=== PATIENT | female | born 1950 | race Caucasian/White ===

== ENCOUNTER 2018-05-17 12:47 | Inpatient (IN) ==
[2018-05-17] MEDS ORDERED: TORADOL IV ONE (13:02)
[2018-05-17] MEDS ORDERED: NS 2,000 ML ONE (13:22)
[2018-05-17] MEDS ORDERED: NS 1,000 ML IV ONE (13:28)
--- NOTE | 2018-05-17 13:41 | PROVIDER DOCUMENTATION ---
This chart was entered by Shahla Mensah Scribe, acting as scribe for Nahun Buchanan MD. HPI-General Adult - General Chief Complaint: Abdominal Pain Stated Complaint: FEMALE Time Seen by Provider: 05/17/18 13:01 Source: patient Allergies/Adverse Reactions: Patient Allergies Allergy/AdvReac Type Severity Reaction Status Date / Time duloxetine HCl * Allergy Unknown Unknown Verified 11/09/12 16:33 [From Cymbalta] prednisone Allergy Unknown Unknown Verified 11/09/12 16:33 pregabalin [From Lyrica] Allergy Unknown Unknown Verified 11/09/12 16:33 sulfamethoxazole Allergy Unknown Unknown Verified 11/09/12 16:33 [From Bactrim] trimethoprim [From Bactrim] Allergy Unknown Unknown Verified 11/09/12 16:33 Home Medications: Home Medication List Medication Instructions Recorded Confirmed Last Taken Type Citalopram [Celexa] 40 mg PO DAILY 11/09/12 11/09/12 Unknown History Clonazepam [Klonopin] 0.5 mg PO HS 11/09/12 11/09/12 Unknown History Esomeprazole [Nexium] 40 mg PO DAILY 11/09/12 11/09/12 Unknown History Estradiol [Estrace] 1 mg PO DAILY 11/09/12 11/09/12 Unknown History Levothyroxine [Synthroid] 50 microgm PO DAILY 11/09/12 11/09/12 Unknown History Lorazepam [Ativan] 1 mg PO BID 11/09/12 11/09/12 11/09/12 09:00 History Propylene Glycol/Peg Oph Soln 1 drop BOTH EYES PRN PRN 11/09/12 11/09/12 Unknown History [Systane Eye Drops] Triamterene/Hctz [Dyazide] 1 each PO DAILY 11/09/12 11/09/12 Unknown History Zolpidem [Ambien] 10 mg PO QHS 11/09/12 11/09/12 Unknown History - History of Present Illness -Gen Adult Nature of Presenting Problems: 67 y/o female presents to ED with worsening suprapubic pain, low back pain, R side pain, N/V/D, decreased urine output, and constipation onset 2 days ago. Pt is dramatically tearful and it is very difficult to obtain information. Location of Pain/Injury: reports: abdomen (suprapubic), back (low), other (R side) Pain Radiation: reports: no radiation Quality of Pain: reports: sharp Severity: reports: moderate Onset/Duration: reports: 2 days ago Timing: reports: still present, getting worse Context/Activities at Onset: reports: none Modifying Factors: worse with: palpation Associated Symptoms: reports: constipation, diarrhea, nausea, vomiting, other ( suprapubic pain, R side pain, decreased urine output) Similar Symptoms Previously?: No Recently seen or treated by another doctor?: No Review of Systems - Adult - REVIEW OF SYSTEMS - ADULT Constitutional: denies: chills, fever Eyes: reports: no symptoms reported Ears, Nose, Mouth & Throat: reports: no symptoms reported Cardiovascular: denies: chest pain, palpitations Respiratory: denies: cough, shortness of breath Gastrointestinal: reports: abdominal pain (suprapubic), constipation, diarrhea, nausea, vomiting Genitourinary: reports: other (decreased urine output). denies: incontinence Musculoskeletal: reports: back pain (low), other (R side pain). denies: joint pain Integumentary: reports: no symptoms reported Neurological: reports: no symptoms reported Psychiatric: reports: no symptoms reported Endocrine: reports: no symptoms reported Hematologic/Lymphatic: reports: no symptoms reported Allergic/Immunologic: reports: no symptoms reported All Other Systems: Reviewed and Negative Past History - Adult - PAST MEDICAL HISTORY-ADULT Review of Records: reports: Old Records Reviewed, Nursing Assessment Review, Medications Reviewed Major Childhood Illnesses: reports: denies history Gastrointestinal: reports: GERD Musculoskeletal: reports: chronic pain Endocrine/Immune: reports: thyroid disorder (hypo) - PRIOR SURGERIES/PROCEDURES Surgical/Procedure History: reports: cholecystectomy, hysterectomy, orthopedic ( extremity) (bilateral shoulders), back/neck (back), other (TMJ; facial reconstruction) - IMMUNIZATION STATUS Childhood Immunizations: See Nurse Assessment Flu Vaccine: See Nurse Assessment - FAMILY HISTORY Family History: reviewed, not pertinent - SOCIAL HISTORY Smoking: quit greater than 1 year Substance Use: none/never Alcohol Use Frequency: never Living Situation: family Physical Exam-General - PHYSICAL EXAM-ADULT Initial Vital Signs Reviewed: Yes - CONSTITUTIONAL General Appearance: appears well, moderate distress, other (dramatically tearful ) - EYES Eyes: PERRL/EOMI, pink conjunctivae - HEAD, EARS, NOSE, MOUTH & THROAT HENMT: normocephalic/atraumatic, moist mucous membranes, normal ENT inspection - NECK Neck: non-tender, full range of motion - RESPIRATORY Respiratory: chest non-tender, lungs clear, normal breath sounds - CARDIOVASCULAR Cardiovascular: normal peripheral pulses, regular rate, rhythm - GASTROINTESTINAL (ABDOMEN) Abdominal Exam: normal bowel sounds, soft, tenderness (suprapubic) - MUSCULOSKELETAL Back Exam: normal inspection, no CVA tenderness Extremity: normal range of motion, normal gait, tenderness (dramatically tender bilateral lower extremities) - SKIN Integumentary: normal color, warm/dry - NEUROLOGIC Neurologic: grossly normal - PSYCHIATRIC Psych/Mental Status: normal mood/affect, normal thought content, normal thought process, oriented x 3, tearful (dramatically) Progress - PLAN OF CARE/RESULTS Progress/Plan/Lab Results: Vital Signs - 8 hr 05/17/18 12:54 Temperature 99.5 F Pulse Rate 107 H Respiratory Rate 19 Blood Pressure 96/63 O2 Sat by Pulse Oximetry 95 Orders Category Date Time Status Saline Loc DIRECTED Care 05/17/18 12:59 Active NPO Diet 05/17/18 12:59 Active AMYLASE [CHEM] Stat Lab 05/17/18 12:59 Uncollected CBC WITH ELECTRONIC DIFF [HEME] Stat Lab 05/17/18 12:59 Uncollected COMPREHENSIVE METABOLIC PANEL [CHEM] Stat Lab 05/17/18 12:59 Uncollected LIPASE [CHEM] Stat Lab 05/17/18 12:59 Uncollected URINALYSIS W/POSS RFLX CULT [URINALYSIS] Stat Lab 05/17/18 12:59 Uncollected Ketorolac [Toradol] Med 05/17/18 13:02 Discontinued 30 mg IV NOW ONE Result Diagrams: 05/17/18 13:18 05/17/18 13:18 - CONSULTS/PCP/HOSPITALIST Notification #1 *Consult/PCP/Hospitalist*: anne Time Discussed: 14:15 Consult Disposition: Admit Departure - Departure Date of Disposition Decision: 05/17/18 Time of Disposition Decision: 14:31 DIAGNOSIS: Urinary tract infection Qualifiers: Urinary tract infection type: site unspecified Hematuria presence: with hematuria Qualified Code(s): N39.0 - Urinary tract infection, site not specified Abdominal pain Qualifiers: Abdominal location: lower abdomen, unspecified Qualified Code(s): R10.30 - Lower abdominal pain, unspecified Disposition: ADMITTED INPATIENT 09 Certified Medical Emergency: Emergent Condition: Stable Referrals and Follow-Ups: Elvin Armas MD [Primary Care Provider] - - Critical Care Note This patient required my direct & personal management of CC.: No Attestation - Physician/ SEGUN Attestation Patient care was provided by Advanced Practice Provider:: No The physician spent face to face time with patient:: Yes (c) Advanced Practice Provider documentation review:: Supervising physician onsite and consulted in the evaluation and care of this patient. The physician did have a face to face encounter with the patient. This chart was documented by the indicated scribe, (Shahla Mensah Scribe) and accurately reflects the services I performed and decisions made by me, Nahun Buchanan MD, as attested by the provider's signature.
[2018-05-17 13:48] LABS: BASO# 0.01 X1000 (0.0-0.2); BASO% 0.1 % (0.0-0.8); HEMATOCRIT 37.3 % (37.0-47.0); HEMOGLOBIN 12.6 g/dL (12.0-16.0); IMM GRAN# 0.07 X1000 (0.0-0.04); IMM GRAN% 0.5 % (0.0-0.5); LYMPH# 0.89 X1000 (1.2-3.4); LYMPH% 6.3 % (20.5-51.1); MCH 29.4 PG (27-31); MCHC 33.8 g/dL (33-37); MCV 87.1 FL (81-99); MONO# 1.75 X1000 (0.11-0.59); MONO% 12.4 % (1.7-9.3); MPV 9.4 FL (7.4-10.4); NEUT# 11.44 X1000 (1.4-6.5); NEUT% 80.7 % (42.2-75.2); PLT 407 X1000 (130-400); RBC 4.28 XMIL (4.2-5.4); RDW 12.5 % (11.5-14.5); WBC 14.16 X1000 (4.8-10.8)
[2018-05-17 13:58] LABS: URINE SOURCE CLEAN CATCH
[2018-05-17 14:13] LABS: BILIRUBIN URINE MODERATE (NEGATIVE); BLOOD URINE MODERATE (NEGATIVE); COLOR ORANGE; GLUCOSE URINE NEGATIVE (NEGATIVE); KETONE URINE NEGATIVE (NEGATIVE); LEUKOCYTES URINE LARGE (NEGATIVE); NITRITE URINE POSITIVE (NEGATIVE); PH URINE 6.5; PROTEIN URINE 300 mg/dL (NEGATIVE); SP GRAVITY URINE 1.016; TURBIDITY URINE TURBID (CLEAR); UROBILINOGEN URINE 3 mg/dL (NORMAL)
[2018-05-17 14:15] LABS: ALB/GLOB RATIO 1.5; ALBUMIN 4.5 g/dL (3.5-5.0); CALCIUM 9.1 mg/dL (8.8-10.2); CREATININE 1.1 mg/dL (0.5-0.9); POTASSIUM 3.7 mmol/L (3.5-5.1); TOTAL BILIRUBIN 1.65 mg/dL (0.20-1.00); TOTAL PROTEIN 7.6 g/dL (6.3-8.3)
[2018-05-17] MEDS ORDERED: ATIVAN IV ONE (14:19)
[2018-05-17 14:26] LABS: UR EPITHELIAL CELLS <10 /HPF (<10); URINE BACTERIA 4+ /HPF; URINE CASTS NONE SEEN; URINE CRYSTALS NONE SEEN; URINE RBC 20-40 /HPF (<10); URINE WBC TNTC /HPF (<10); URINE YEAST NONE SEEN
[2018-05-17] MEDS: NS 1,000 ML IV SCH ×2 (14:49→23:39)
[2018-05-17] MEDS: ROCEPHIN 1 GM in NS 50 ML IV SCH (14:49)
[2018-05-17] MEDS: ZOFRAN IV PRN (15:44)
[2018-05-17] MEDS: MORPHINE IV PRN ×2 (15:45→22:29)
--- NOTE | 2018-05-17 17:11 | HISTORY AND PHYSICAL ---
CHIEF COMPLAINT: Urinary tract infection. HISTORY OF PRESENT ILLNESS: This 67-year-old white female has apparently been sick since . She neglected to call her primary office in a timely fashion and got azo over the counter for symptoms of dysuria and cramping in the abdomen. Over the course of the weekend she has been vomiting frequently, having abdominal pain, continued dysuria with cramping, fever as high as 102. The patient's called me late Friday morning and after hearing the history, I immediately recommended emergency room visit for evaluation. He stated that she refused to go to the emergency room and I stood by my recommendation. I then tried to appease them by offering to call in some medication and he questioned that. I stood firm on my recommendation to the emergency room and some 2-1/2 hours later they showed up at the emergency room and were evaluated by the physician there. After seeing the patient's vital signs on line, I decided to come in and go ahead and see the patient, even though her database was not complete. It is clear she has a urinary tract infection by her urinalysis and elevated white cell count, as well as fever and relative hypotension. PAST MEDICAL HISTORY: 1. Chronic pain. 2. Generalized anxiety disorder. 3. Hypothyroidism. 4. Diffuse degenerative arthritis, including knees and shoulders. 5. Other chronic pain. PAST SURGICAL HISTORY: 1. Cholecystectomy. 2. Spinal epidural x 3. 3. Multiple lower back surgeries. FAMILY HISTORY: Noncontributory. SOCIAL HISTORY: The patient is and lives with her . She is a former nurse. REVIEW OF SYSTEMS: The patient has crampy abdominal pain, severe cramping, dysuria, as well as burning when she urinates. She states that now the pain is up into her sides and flank. She vomits nearly every time she goes to the bathroom, although her stomach is empty. She has not been eating or drinking. She has had fever at home. She denies any cough, wheezing or shortness of breath that is new. She has a chronic cough dating back to a previous hospitalization in 2010 when she had aspiration pneumonitis. Patient's states that she has chronic mild hypotension, with the systolic blood pressure averaging around 105. The patient denies any chest pain or palpitations. From a musculoskeletal standpoint, she says she hurts everywhere. There is no place that I mentioned or could touch her where she did not hurt. She states she has chronic right lower quadrant abdominal pain which has been worked up with CT scans and ultrasounds by Dr. Armas with no findings. The patient has insomnia and anxiety, as well as chronic pain. PHYSICAL EXAMINATION: GENERAL: She is a well-developed white female who is shaking and crying. She states that she thinks she is going to . ENT: The sclerae are anicteric. Oral mucosa is dry, but not parched. It is of normal coloration. NECK: Unremarkable. LUNGS: Clear to auscultation in all hawkins anteriorly and posteriorly. CARDIOVASCULAR: Regular at 86. This corresponds with the findings on the monitor. Blood pressure at the time my examination was 103/69. ABDOMEN: Bowel sounds are scarce, but present. She is diffusely tender every place where I touch her. EXTREMITIES: There is no peripheral edema. She is tender everywhere I touch her. NEUROLOGIC: Cranial nerves are intact. There are no focal findings. She is able to move her arms and legs at command, although she states that her knee hurts. PSYCHOLOGIC: The patient is very overwrought, nervous and frightened. LABORATORIES: It is noted that the database is not quite complete yet. Urinalysis shows 20 to 40 red blood cells per high-power field, large leukocyte esterase and nitrite positivity, 4+ bacteria and too numerous to count white cells per high-powered field. Serum electrolytes show slightly low sodium and chloride of 132 and 88 respectively. White cell count is elevated at 14,000, hematocrit 37.3. ASSESSMENT AND PLAN: 1. The patient clearly has a UTI. I am going to check a lactate level to make sure that we are not dealing with a sepsis syndrome, but I do not think so looking at all the parameters. She has been lincoln cultured or will be lincoln cultured before leaving the ER. Am going to give her Rocephin initially and monitor the microbiology for any adjustments that need to be made in antibiotic. I have also ordered a flu swab due to her high temperatures at home. 2. The patient's chronic pain and anxiety are going to be an issue. She does not appear to be very stoic. I will plan to give her Ativan as needed and when her stomach problems clear up a bit she can be put back on her usual p.o. regimen. 3. Her blood pressure is relatively low and hydration status is low and I have started normal saline 125 mL/h. cc: MD Elvin Herndon MD [facility] NOBLE HOSPITALMyesha
[2018-05-17] MEDS: AMBIEN PO SCH (23:30)
[2018-05-17] MEDS: TYLENOL PO PRN (23:35)
[2018-05-18] MEDS: KLONOPIN PO SCH ×2 (00:05→22:49)
[2018-05-18] MEDS: ZOFRAN IV PRN ×2 (06:06→13:19)
[2018-05-18] MEDS: NS 1,000 ML IV SCH ×3 (06:06→20:27)
[2018-05-18] MEDS ORDERED: SYSTANE EYE DROPS BOTH EYES PRN (07:12)
[2018-05-18 08:43] LABS: BASO# 0.01 X1000 (0.0-0.2); BASO% 0.1 % (0.0-0.8); HEMATOCRIT 28.7 % (37.0-47.0); HEMOGLOBIN 9.5 g/dL (12.0-16.0); IMM GRAN# 0.04 X1000 (0.0-0.04); IMM GRAN% 0.3 % (0.0-0.5); LYMPH# 1.06 X1000 (1.2-3.4); LYMPH% 8.4 % (20.5-51.1); MCHC 33.1 g/dL (33-37); MCV 90.5 FL (81-99); MONO# 1.32 X1000 (0.11-0.59); MONO% 10.4 % (1.7-9.3); MPV 9.5 FL (7.4-10.4); NEUT# 10.25 X1000 (1.4-6.5); NEUT% 80.8 % (42.2-75.2); PLT 263 X1000 (130-400); RBC 3.17 XMIL (4.2-5.4); RDW 12.8 % (11.5-14.5); WBC 12.68 X1000 (4.8-10.8)
[2018-05-18 08:58] LABS: CALCIUM 8.2 mg/dL (8.8-10.2); CREATININE 1.4 mg/dL (0.5-0.9)
--- NOTE | 2018-05-18 09:44 | PROGRESS NOTE ---
DATE: 05/18/2018 SUBJECTIVE: Ms. Vasquez presented, had been sick for 3 or 4 days. She complained of pressure over her bladder. Over the weekend, she had vomiting frequently and having abdominal pain, dysuria, and cramping. Temp 102 degrees, who came in on Friday morning. She was admitted with a UTI. Her influenza screen was negative for A and B. Her urine, quite a bit of sediment, and too numerous to count white blood cells, 20 to 40 red blood cells, and 4+ bacteria, so treating her for pyelonephritis. She still feels pretty bad. OBJECTIVE: Vital signs: Temp 98 degrees, pulse 69, respirations 15, blood pressure 91/41. Pupils: Are equal and round. Lungs: Clear in all lung hawkins. Cardiovascular: Regular rate without murmur or S3. Abdomen: Soft. Skin: Warm and dry. : Scant urine output. ASSESSMENT AND PLAN: 1. Pyelonephritis. Gave her quite a bit of fluids. Continue Rocephin. 2. Chronic pain, anxiety, and depression. Still long history for her, so continue her current medications. She is on Klonopin 0.5 mg a day, Celexa 40 mg a day, Ativan 1 mg b.i.d. She is getting normal saline at 125 mL an hour, and will continue the ceftriaxone 1 gram q.24 hours. cc: Elvin Armas MD
[2018-05-18] MEDS: ESTRACE PO SCH (10:09)
[2018-05-18] MEDS: ATIVAN PO SCH ×2 (10:09→22:49)
[2018-05-18] MEDS: NEXIUM PO SCH (10:09)
[2018-05-18] MEDS: SYNTHROID PO SCH (10:09)
[2018-05-18] MEDS: CELEXA PO SCH (10:10)
[2018-05-18] MEDS: TYLENOL PO PRN ×2 (10:25→20:27)
[2018-05-18] MEDS: MORPHINE IV PRN (13:17)
[2018-05-18] MEDS: ROCEPHIN 1 GM in NS 50 ML IV SCH (14:52)
[2018-05-18] MEDS: DYAZIDE PO SCH (16:25)
[2018-05-18] MEDS: AMBIEN PO SCH (22:49)
[2018-05-19] MEDS: NS 1,000 ML IV SCH ×3 (07:07→20:29)
[2018-05-19 07:44] LABS: CALCIUM 7.7 mg/dL (8.8-10.2); CREATININE 1.2 mg/dL (0.5-0.9); MAGNESIUM 1.7 mg/dL (1.5-2.7); POTASSIUM 3.3 mmol/L (3.5-5.1)
[2018-05-19] MEDS: HALL'S COUGH LOZENGE MT PRN ×2 (08:47→20:30)
[2018-05-19] MEDS: CELEXA PO SCH (08:50)
[2018-05-19] MEDS: ESTRACE PO SCH (08:51)
[2018-05-19] MEDS: ATIVAN PO SCH ×2 (08:51→22:45)
[2018-05-19] MEDS: DYAZIDE PO SCH (08:51)
[2018-05-19] MEDS: SYNTHROID PO SCH (08:51)
[2018-05-19] MEDS: NEXIUM PO SCH (08:51)
--- NOTE | 2018-05-19 08:52 | Diag Imaging Result Doc PS360 ---
EXAM: US RENAL 2 (RETROPER) COMPLETE HISTORY: pyelonephritis TECHNIQUE: Renal ultrasound COMPARISON: None. FINDINGS: The right kidney measures 11.3 x 5.3 x 5.2 cm. Normal renal echotexture and cortical thickness. No renal stone or hydronephrosis. No renal mass. The left kidney is partly obscured, but measures 10.7 x 5.9 x 5.2 cm. Normal renal echotexture and cortical thickness. There is a 2.9 cm cyst. No other renal abnormality identified. The urinary bladder is distended and is normal. IMPRESSION: Left renal cyst. Electronically signed by Rashaad Beltran 05/19/2018 8:50 AM
[2018-05-19] MEDS: TYLENOL PO PRN ×2 (09:02→20:34)
[2018-05-19] MEDS: MORPHINE IV PRN ×2 (09:03→20:28)
--- NOTE | 2018-05-19 10:08 | PROGRESS NOTE ---
DATE: 05/19/2018 SUBJECTIVE: Ms. Vasquez had started having some urine output yesterday. I think she is feeling a little bit better. She has a little bit of dry cough. OBJECTIVE: Vital Signs: Temperature 99.8 degrees, pulse 90, respirations 20, blood pressure 122/42. HEENT: Pupils are equal and round. No distended neck veins. Lungs: Clear in all lung hawkins. Cardiovascular Examination: Regular rhythm and rate without murmur or S3. Abdomen: Soft. Skin: Warm and dry. Is and Os: Urine output is 6 L. Laboratory Data: Renal ultrasound, there is a left renal cyst. Otherwise no obstruction. Kidneys, normal dimensions. ASSESSMENT AND PLAN: 1. Pyelonephritis, volume depletion, and dehydration. She seems to be doing better. Urine output is improving. 2. Chronic pain, anxiety, and depression. Continue her current medications. 3. Postnasal drainage and bronchial irritation. I will put her on a steroid inhaler and let her have some cough medicine too, some Tessalon Perles as needed. Continue present fluid management. cc: Elvin Armas MD
[2018-05-19] MEDS: ROCEPHIN 1 GM in NS 50 ML IV SCH (14:40)
[2018-05-19] MEDS: KLONOPIN PO SCH (20:28)
[2018-05-19] MEDS: ZOFRAN IV PRN (20:34)
[2018-05-19] MEDS: TESSALON PO PRN (20:44)
[2018-05-19] MEDS: AMBIEN PO SCH (22:44)
[2018-05-19] MEDS: ADVAIR 250/50 DISKUS INH SCH (23:52)
[2018-05-20] MEDS: NS 1,000 ML IV SCH ×5 (03:01→17:39)
[2018-05-20] MEDS: TYLENOL PO PRN (03:01)
[2018-05-20 07:03] LABS: POTASSIUM 2.9 mmol/L (3.5-5.1)
[2018-05-20 07:04] LABS: AGAP 9; BUN 7 mg/dL (8-22); CALCIUM 7.8 mg/dL (8.8-10.2); CHLORIDE 105 mmol/L (98-107); COSMO 267; CREATININE 0.8 mg/dL (0.5-0.9); ESTIMATED GFR > 60; GLUCOSE 88 mg/dL (70-104); SODIUM 135 mmol/L (136-145); TCO2 21 mmol/L (25-35)
[2018-05-20] MEDS: ESTRACE PO SCH (08:43)
[2018-05-20] MEDS: CELEXA PO SCH (08:44)
[2018-05-20] MEDS: DYAZIDE PO SCH (08:44)
[2018-05-20] MEDS: NEXIUM PO SCH (08:44)
[2018-05-20] MEDS: SYNTHROID PO SCH (08:44)
[2018-05-20] MEDS: ATIVAN PO SCH ×2 (08:44→22:35)
--- NOTE | 2018-05-20 14:05 | PROGRESS NOTE ---
DATE: 05/20/2018 SUBJECTIVE: Ms. Vasquez his a pretty raspy cough. Otherwise she is eating. Urine output has improved dramatically. She is complaining of fever blisters on her lip. OBJECTIVE: Vital Signs: Temperature 99 degrees, pulse 67, respirations 16, blood pressure 130/59. Urine output is 2700 mL. HEENT: Pupils are equal and round. Lungs: Clear in all lung hawkins. Cardiovascular: Regular rhythm and rate without murmur or S3. Abdomen: Soft. Skin: Warm and dry. DIAGNOSTIC STUDIES: Renal ultrasound was unremarkable except for a left renal cyst. ASSESSMENT AND PLAN: She has remained afebrile. I am going to continue her ceftriaxone. I will put her on a steroid inhaler. Will get physical therapy to try and start getting her up. Continue her other orders. I may try her on a stronger cough medicine using some Tussionex. cc: Elvin Armas MD
[2018-05-20] MEDS: ROCEPHIN 1 GM in NS 50 ML IV SCH (14:15)
[2018-05-20] MEDS: ZOVIRAX OINTMENT TOP SCH ×3 (14:15→22:37)
[2018-05-20] MEDS: TESSALON PO PRN (18:13)
[2018-05-20] MEDS: ADVAIR 250/50 DISKUS INH SCH (18:24)
[2018-05-20] MEDS: MORPHINE IV PRN (18:24)
[2018-05-20] MEDS: ZOFRAN IV PRN (20:20)
[2018-05-20] MEDS: KLONOPIN PO SCH (20:20)
[2018-05-20] MEDS: AMBIEN PO SCH (20:20)
[2018-05-21] MEDS: TESSALON PO PRN ×2 (00:04→17:12)
[2018-05-21] MEDS: NS 1,000 ML IV SCH ×3 (00:05→15:44)
[2018-05-21 08:03] LABS: AGAP 12; BUN 4 mg/dL (8-22); CALCIUM 7.8 mg/dL (8.8-10.2); CHLORIDE 104 mmol/L (98-107); COSMO 268; CREATININE 0.7 mg/dL (0.5-0.9); ESTIMATED GFR > 60; GLUCOSE 91 mg/dL (70-104); POTASSIUM 3.3 mmol/L (3.5-5.1); SODIUM 136 mmol/L (136-145); TCO2 20 mmol/L (25-35)
[2018-05-21] MEDS: ESTRACE PO SCH (08:35)
[2018-05-21] MEDS: ATIVAN PO SCH ×2 (08:35→22:38)
[2018-05-21] MEDS: SYNTHROID PO SCH (08:35)
[2018-05-21] MEDS: NEXIUM PO SCH (08:35)
[2018-05-21] MEDS: DYAZIDE PO SCH (08:35)
[2018-05-21] MEDS: CELEXA PO SCH (08:35)
[2018-05-21] MEDS: MORPHINE IV PRN ×2 (09:12→18:31)
--- NOTE | 2018-05-21 09:54 | PROGRESS NOTE ---
DATE: 05/21/2018 SUBJECTIVE: Ms. Vasquez is better, but still coughing. OBJECTIVE: Vital Signs: She remains afebrile. Temperature 99.8, pulse 68, respirations 16, blood pressure 134/64. Eyes: Pupils are equal and round. Lungs: Clear in all lung hawkins, anterior, lateral, posterior. Cardiovascular exam: Regular rhythm and rate without murmur or S3. : Urine output is 4300 mL. ASSESSMENT AND PLAN: 1. Pyelonephritis. Urinary tract infection. This is better. Renal function looks good. 2. Intravascular volume depletion. She is making good urine output. Creatinine is 0.7. 3. Chronic pain, anxiety and depression. 4. Bronchial irritation. Postnasal drainage. She really does not like to use any of the inhalers. I will have her on guaifenesin. She is taking Tessalon Perles. I will use an Advair inhaler, see if it will help. cc: Elvin Armas MD
[2018-05-21] MEDS: ZOFRAN IV PRN ×2 (10:09→18:31)
[2018-05-21] MEDS: ZOVIRAX OINTMENT TOP SCH ×4 (10:45→18:02)
[2018-05-21] MEDS: SYMBICORT 160/4.5 MICROGM INHALER INH SCH ×2 (11:16→20:53)
[2018-05-21] MEDS: ADVAIR 250/50 DISKUS INH SCH ×3 (11:17→20:52)
[2018-05-21] MEDS: ROCEPHIN 1 GM in NS 50 ML IV SCH (15:42)
[2018-05-21] MEDS: KLONOPIN PO SCH (20:32)
[2018-05-21] MEDS: TYLENOL PO PRN (20:32)
[2018-05-21] MEDS: AMBIEN PO SCH (22:38)
[2018-05-22] MEDS: MUCINEX PO SCH ×3 (02:39→20:18)
[2018-05-22] MEDS: ZOVIRAX OINTMENT TOP SCH ×6 (02:40→23:19)
--- NOTE | 2018-05-22 08:43 | Diag Imaging Result Doc PS360 ---
EXAM: CHEST-2 VIEWS HISTORY: Chronic cough TECHNIQUE: Chest two views COMPARISON: 04/16/2012 FINDINGS: There are small bilateral pleural effusions. Increased AP diameter to the chest. There is pulmonary edema. There is also basilar atelectasis and possibly underlying infiltrates. The exam is mislabeled with the left marker placed on the right. IMPRESSION: Pulmonary edema with small pleural effusions as well as basilar atelectasis and possibly underlying pneumonia. Electronically signed by Rashaad Beltran 05/22/2018 8:40 AM
[2018-05-22] MEDS: SYMBICORT 160/4.5 MICROGM INHALER INH SCH ×2 (09:07→20:40)
[2018-05-22] MEDS: ADVAIR 250/50 DISKUS INH SCH ×2 (09:07→20:40)
[2018-05-22] MEDS: ESTRACE PO SCH (09:42)
[2018-05-22] MEDS: ATIVAN PO SCH ×2 (09:42→20:18)
[2018-05-22] MEDS: NEXIUM PO SCH (09:42)
[2018-05-22] MEDS: DYAZIDE PO SCH (09:42)
[2018-05-22] MEDS: TESSALON PO PRN ×2 (09:43→20:29)
[2018-05-22] MEDS: SYNTHROID PO SCH (09:43)
[2018-05-22] MEDS: CELEXA PO SCH (09:43)
--- NOTE | 2018-05-22 10:05 | PROGRESS NOTE ---
DATE: 05/22/2018 SUBJECTIVE: Ms. Vasquez is sitting up in a chair. She says she still does not feel good. She feels cold. She had a temperature yesterday of 102.2. Her chest x-ray showed some pulmonary edema, small pleural effusions, as well as basilar atelectasis and possibly underlying pneumonia. We are going to repeat another chest x-ray again in the morning. OBJECTIVE: Vital Signs: On exam today, she is afebrile with temperature 98.9 degrees, pulse 80 respirations 16, blood pressure 138/72. HEENT: Pupils are equal and round. Lungs: Clear in all lung hawkins. Cardiovascular exam: Regular rhythm and rate without murmur or S3. Abdomen: Soft. Skin: Warm and dry. : Urine output is 2300 mL. X-RAYS: Chest x-ray: Pulmonary edema, small pleural effusion, as well as basilar atelectasis. ASSESSMENT AND PLAN: 1. Possibly underlying pneumonia. Continue present antibiotics. 2. Pyelonephritis. She is on ceftriaxone; we will continue that. It appears the urinary tract infection has been well treated. 3. Presented with intravascular volume depletion and nausea, and this is much better. 4. Long history of general anxiety and depression. 5. Bronchial irritation. So, continue her Advair. She does not want albuterol. cc: Elvin Armas MD
[2018-05-22] MEDS: ZOFRAN IV PRN ×2 (10:33→21:22)
[2018-05-22] MEDS: MORPHINE IV PRN ×3 (10:34→21:21)
[2018-05-22] MEDS: NS 1,000 ML IV SCH (12:40)
[2018-05-22] MEDS: ROCEPHIN 1 GM in NS 50 ML IV SCH (15:15)
[2018-05-22] MEDS: KLONOPIN PO SCH (20:18)
[2018-05-22] MEDS: AMBIEN PO SCH (20:18)
[2018-05-22] MEDS: TYLENOL PO PRN (20:28)
[2018-05-23] MEDS: ZOFRAN IV PRN ×2 (06:55→15:56)
[2018-05-23] MEDS: TESSALON PO PRN ×2 (06:55→20:09)
[2018-05-23] MEDS: MORPHINE IV PRN ×3 (06:55→20:09)
--- NOTE | 2018-05-23 08:38 | Diag Imaging Result Doc PS360 ---
EXAM: CHEST-2 VIEWS HISTORY: pneumonia TECHNIQUE: Chest two views COMPARISON: 05/22/2018 FINDINGS: There are small bilateral pleural effusions which remain. There are basilar infiltrates and atelectasis as well as pulmonary edema. The heart is not enlarged. There are infiltrates in the upper right lung. IMPRESSION: No significant interval improvement. Electronically signed by Rashaad Beltran 05/23/2018 8:35 AM
[2018-05-23] MEDS: ADVAIR 250/50 DISKUS INH SCH ×2 (08:46→20:00)
[2018-05-23] MEDS: SYMBICORT 160/4.5 MICROGM INHALER INH SCH ×2 (08:46→20:00)
[2018-05-23] MEDS ORDERED: MILK OF MAGNESIA PO ONE (08:59)
[2018-05-23] MEDS ORDERED: DULCOLAX PR PRN (09:00)
[2018-05-23] MEDS: NEXIUM PO SCH (09:23)
[2018-05-23] MEDS: DYAZIDE PO SCH (09:23)
[2018-05-23] MEDS: ATIVAN PO SCH ×2 (09:23→20:09)
[2018-05-23] MEDS: MUCINEX PO SCH ×2 (09:23→20:09)
--- NOTE | 2018-05-23 09:23 | PROGRESS NOTE ---
DATE: 05/23/2018 SUBJECTIVE: She is awake and sitting up, seems to feel a little better. She still is coughing and has bronchial irritation. She did sit up in a chair twice yesterday. She has not had a bowel movement I guess in about 4 days ago so we are requesting something for her bowels, and remains afebrile. OBJECTIVE: Temperature 99.4 degrees, pulse 93, respirations 16, and blood pressure 131/50. HEENT: Pupils are equal and round. Neck: No distended neck veins. Lungs: Clear anterior and posterior. Cardiovascular: Regular rate without murmur or S3. Abdomen: Soft. Skin: Warm and dry. ASSESSMENT AND PLAN: 1. Deep inspiration does provoke cough. Still significant bronchial irritation. Urine output is 2900 mL. Chest x-ray: No significant improvement. There are small bilateral pleural effusions which remain bibasilar infiltrates, which I think is atelectasis so continue to try and get her up and will repeat another chest x-ray in the morning. 2. Constipation. I am going to give her some milk of magnesia today and Dulcolax suppository to see if we can get her bowels to move. 3. Long history of general anxiety and depression. 4. Presented with pyelonephritis, and this appears to be well treated. I am going to continue her ceftriaxone 1 g q.24 hours. Hopefully, can be discharged tomorrow. cc: Elvin Armas MD
[2018-05-23] MEDS: CELEXA PO SCH (09:24)
[2018-05-23] MEDS: ESTRACE PO SCH (09:24)
[2018-05-23] MEDS: SYNTHROID PO SCH (09:24)
[2018-05-23] MEDS: ZOVIRAX OINTMENT TOP SCH ×5 (09:31→23:56)
[2018-05-23] MEDS: TYLENOL PO PRN (12:56)
[2018-05-23] MEDS: ROCEPHIN 1 GM in NS 50 ML IV SCH (14:51)
[2018-05-23] MEDS: NS 1,000 ML IV SCH ×3 (14:55→23:55)
[2018-05-23] MEDS: AMBIEN PO SCH (20:09)
[2018-05-23] MEDS: KLONOPIN PO SCH (20:09)
[2018-05-24] MEDS: ZOFRAN IV PRN (00:31)
[2018-05-24] MEDS: MORPHINE IV PRN ×2 (00:31→08:56)
[2018-05-24] MEDS: TYLENOL PO PRN ×2 (04:38→13:04)
[2018-05-24] MEDS: TESSALON PO PRN (04:38)
[2018-05-24] MEDS: NEXIUM PO SCH (08:55)
[2018-05-24] MEDS: MUCINEX PO SCH (08:55)
[2018-05-24] MEDS: ESTRACE PO SCH (08:55)
[2018-05-24] MEDS: SYNTHROID PO SCH (08:55)
[2018-05-24] MEDS: DYAZIDE PO SCH (08:55)
[2018-05-24] MEDS: ATIVAN PO SCH (08:56)
[2018-05-24] MEDS: ZOVIRAX OINTMENT TOP SCH (08:56)
[2018-05-24] MEDS: CELEXA PO SCH (08:56)
--- NOTE | 2018-05-24 10:17 | PROGRESS NOTE ---
DATE: 05/24/2018 SUBJECTIVE: They had difficulty. Her IV came out. Difficulty starting one. She says she hurts everywhere and she is still coughing. OBJECTIVE: Vitals: She remains afebrile. Her temperature was 99.1 degrees, pulse 103, respirations 20, blood pressure 125/51. HEENT: Pupils are equal. No distended neck veins. CVP less than 6 cm from right atrium. Abdomen: Soft. Lungs: Clear in all lung hawkins, anterior, posterior and lateral. Cardiovascular: Regular rhythm and rate without murmur or S3. Abdomen: Soft. Skin: Warm and dry. IMAGING: Her chest x-ray from yesterday, there are small bilateral pleural effusions, but there are basilar infiltrates and atelectasis, pulmonary edema. No sign of infiltrate. ASSESSMENT AND PLAN: 1. She has some bronchitis, which I think is related to her postnasal drainage. I think she would benefit from getting up out of bed and walking, and she will probably have bronchial irritation for several more weeks. 2. Constipation. We have given her some milk of magnesia and Dulcolax and I think that is better. 3. History of general anxiety and depression. 4. She presented with pyelonephritis. This has been well treated. So, I think she is ready to go home. She is reluctant to go home because she says she still does not feel very good. I am going to see how we do this afternoon and see if we can get her ready to go home. cc: Elvin Armas MD MTDD
--- NOTE | 2018-05-24 10:21 | DISCHARGE SUMMARY ---
ADMISSION DATE: 05/17/2018 DISCHARGE DATE: 05/24/2018 HISTORY OF PRESENT ILLNESS/HOSPITAL COURSE: Presented on 05/17/2018 with complaints of dysuria and fever and was admitted with what we suspected was pyelonephritis. A 67-year-old who has been sick for 3 or 4 days. Neglected to call our office. She got azo [id number]. Symptoms were dysuria and cramping in the abdomen. Over the course of the week she began vomiting, frequently having abdominal pain, continued to have dysuria and cramping. Fevers got up to 102. Came to the emergency room. Urine had significant sediment. Cultures grew E. coli which was sensitive to everything. We had her on ceftriaxone. Blood cultures x2 with no growth. She showed improvement with her urinary tract infection but she developed a raspy cough, bronchial irritation, and I suspect this is from postnasal drainage. We encouraged her to try and get out of bed and she did complain of some constipation. We did a renal ultrasound to make sure there was no bladder obstruction. She does have a left renal cyst but otherwise no obstruction. She has showed improvement. She does not have much appetite. She does not have much incentive to get up out of bed but I think that she would like to go home. We have reached maximal hospital benefit. DISCHARGE MEDICATIONS: She will take Celexa 40 mg a day, Klonopin 0.5 mg at bedtime, Nexium 40 mg a day, estradiol 1 mg a day, Synthroid 50 mcg a day, Ativan 1 mg b.i.d. She takes propylene glycol eyedrops to both eyes as needed, Dyazide 1 a day, and Ambien 10 mg at bedtime. She can have Tylenol for discomfort. I will give her a steroid inhaler. Will leave her on Levaquin for another 5 days. We will give her the steroid inhaler, Advair 250/50 1 puff twice a day. Of course her Synthroid 50 mcg a day. PLAN: See her back in my office in 1 week. cc: Elvin Armas MD
[2018-05-24 12:18] VITALS: BP 118/44
== END 2018-05-24 15:54 | disposition home health service (06) | DRG 690 ==
LOC: ED 12:47 → 4N 14:44
PROVIDERS: ADMIT Emergency Medicine; ATTEND Emergency Medicine
CPT/HCPCS: 71020; 71046; 76770; 80048; 80053; 81001; 82150; 83605; 83690; 83735; 85025; 87040; 87077; 87088; 87186; 87275; 87276; 87804; 94640; 94761; 96374; 96375; 97116; 97162; 99285; A9270; J0696; J1885; J2060; J2270; J2405; J7030